=== PATIENT | female | born 1960 | race Caucasian/White ===

== ENCOUNTER 2019-01-10 20:41 | Emergency (ER) | payer OTHER ==
[~2019-01-10] VITALS: Ht 152.4 cm; Wt 61.2 kg
[2019-01-10 20:46] VITALS: BP 142/82
--- NOTE | 2019-01-10 20:54 | NUR ---
PT WHEELCHAIRED BY THE LOBBY, SON AT SIDE.
--- NOTE | 2019-01-10 21:05 | NUR ---
ASSUMED CARE OF PT AT THIS TIME. C/O RIGHT BIG TOE PAIN S/P MECHANICAL TRIP/FALL. AAOX4 WITH EVEN AND STEADY GAIT; PATIENT STATES PAIN OF 7/10; VSS; PATIENT POSITIONED FOR COMFORT; HOB ELEVATED; BEDRAILS UP X2; BED DOWN. ER MD MADE AWARE OF PT STATUS. WILL CONTINUE TO MONITOR.
--- NOTE | 2019-01-10 21:05 | NUR ---
PATIENT WHEELCHAIRED TO ER BED 4.
[2019-01-10] MEDS ORDERED: ACETAMINOPHEN 325 MG TAB PO ONE (21:20)
[2019-01-10 22:15] VITALS: BP 142/82
--- NOTE | 2019-01-10 22:15 | NUR ---
PLACED ORTHO SHOE AND MARTA TAPE ON PATIENT'S RIGHT FOOT
== END 2019-01-10 22:15 | disposition home or self-care (01) ==
LOC: MED 20:41
DX: S92.411A Displaced fracture of proximal phalanx of right great toe, initial encounter for closed fracture (principal); F41.9 Anxiety disorder, unspecified; I10 Essential (primary) hypertension; Z88.8 Allergy status to other drugs, medicaments and biological substances; W06.XXXA Fall from bed, initial encounter; Y93.89 Activity, other specified; Y92.89 Other specified places as the place of occurrence of the external cause; Y99.8 Other external cause status
CPT/HCPCS: 29515; 73660; 99283

== ENCOUNTER 2019-01-26 18:40 | Emergency (ER) | payer OTHER ==
[~2019-01-26] VITALS: Ht 152.4 cm; Wt 60.3 kg
[2019-01-26 18:52] VITALS: BP 130/77
--- NOTE | 2019-01-26 19:28 | NUR ---
58 Y/O FEMALE PRESENTS TO ED WITH C/O EDEMA TO RIGHT ELBOW X6 HRS. 8/10 SEVER PAIN RADIATING TO SHOULDER AND HAND. RIGHT ELBOW RED, EDEMA, SMALL INSECT-LIKE BITE. DECREASED HAND STRENGTH TO RIGHT HAND D/T PAIN. BILAT PULSES EQUAL/STRONG. NO DRAINAGE. ER MD AWARE. CONTINUE TO MONITOR.
--- NOTE | 2019-01-26 19:28 | NUR ---
Pt placed in bed 9.
--- NOTE | 2019-01-26 20:30 | NUR ---
PT IN BED RESTING WITH EYES OPEN. VSS. CONTINUE TO MONITOR.
--- NOTE | 2019-01-26 21:30 | NUR ---
PT IN BED RESTING WITH EYES OPEN. VSS. CONTINUE TO MONITOR.
--- NOTE | 2019-01-26 22:01 | NUR ---
PT AMBULATED TO RESTROOM. VSS. CONTINUE TO MONITOR.
[2019-01-26 22:04] LABS: BASOPHILS % (AUTO) 0.5 % (0.0-2.0); EOSINOPHILS # (AUTO) 0.4 K/uL (0-0.4); EOSINOPHILS % (AUTO) 4.8 % (0.0-4.0); HEMATOCRIT 39.1 % (36-48); HEMOGLOBIN 13.3 g/dL (12.0-16.0); LYMPHOCYTES # (AUTO) 1.8 K/uL (2.5-16.5); LYMPHOCYTES % (AUTO) 20.6 % (20.5-51.1); MEAN CORPUSCULAR HEMOGLOBIN 29 pg (27-31); MEAN CORPUSCULAR HGB CONC 34 g/dL (33-37); MEAN CORPUSCULAR VOLUME 84.7 fL (80-94); MONOCYTES # (AUTO) 0.8 K/uL (0.8-1.0); MONOCYTES % (AUTO) 8.7 % (1.7-9.3); NEUTROPHILS # (AUTO) 5.6 K/uL (1.8-7.7); NEUTROPHILS % (AUTO) 65.4 % (42.2-75.2); PLATELET COUNT (AUTO) 219 K/uL (140-450); RED BLOOD CELL COUNT(AUTO) 4.61 MIL/uL (4.20-5.40); RED CELL DISTRIBUTION WIDTH 12.8 % (11.6-13.7); WHITE BLOOD COUNT (AUTO) 8.6 K/uL (4.8-10.8)
[2019-01-26 22:17] LABS: ANION GAP 15.3 (8-16); CARBON DIOXIDE 26.6 mmol/L (21-32); CREATININE 0.9 mg/dL (0.6-1.3); POTASSIUM 3.9 mmol/L (3.5-5.1)
[2019-01-26 22:23] LABS: TOTAL BILIRUBIN 0.4 mg/dL (0.0-1.0)
--- NOTE | 2019-01-27 00:20 | NUR ---
DR. QUESADA SPEAKING WITH PATIENT.
[2019-01-27 00:35] VITALS: BP 118/82
--- NOTE | 2019-01-27 00:35 | NUR ---
Patient discharged with v/s stable. Written and verbal after care instructions given and explained. Patient verbalized understanding. Ambulatory with steady gait. All questions addressed prior to discharge. Advised to follow up with PMD.
== END 2019-01-27 00:35 | disposition home or self-care (01) ==
LOC: MED 18:40
DX: M71.521 Other bursitis, not elsewhere classified, right elbow (principal); I10 Essential (primary) hypertension; Z88.8 Allergy status to other drugs, medicaments and biological substances
CPT/HCPCS: 36415; 73080; 76881; 80053; 85025; 85651; 86140; 99284; Q0092

== ENCOUNTER 2019-01-29 13:24 | Emergency (ER) | payer OTHER ==
[~2019-01-29] VITALS: Ht 152.4 cm; Wt 63.5 kg
[2019-01-29 13:29] VITALS: BP 107/63
--- NOTE | 2019-01-29 13:35 | NUR ---
PT PLACED IN BED 8.
--- NOTE | 2019-01-29 13:48 | NUR ---
58/F BIB SELF C/O R ELBOW PAIN 12/25 X 3 DAYS. seen in our er 01/26/2019 right elbow bursitis instructed to return today for follow up. hx--htn, hypoglycemia, anxiety. PATIENT POSITIONED FOR COMFORT; HOB ELEVATED; BEDRAILS UP X1; BED DOWN. ER MD MADE AWARE OF PT STATUS.
[2019-01-29] MEDS ORDERED: KETOROLAC 60 MG/2 ML VIAL IM ONE (13:50)
[2019-01-29 14:23] VITALS: BP 113/67
--- NOTE | 2019-01-29 14:23 | NUR ---
Patient discharged with v/s stable. Written and verbal after care instructions given and explained. Patient alert, oriented and verbalized understanding of instructions. Ambulatory with steady gait. All questions addressed prior to discharge. ID band removed. Patient advised to follow up with PMD. Rx of TRAMADOL,PREDNISONE,KEFLEX given. Patient educated on indication of medication including possible reaction and side effects. Opportunity to ask questions provided and answered.
== END 2019-01-29 14:23 | disposition home or self-care (01) ==
LOC: MED 13:24
DX: M70.21 Olecranon bursitis, right elbow (principal); L03.113 Cellulitis of right upper limb; I10 Essential (primary) hypertension; F17.200 Nicotine dependence, unspecified, uncomplicated; Z88.5 Allergy status to narcotic agent; Z98.890 Other specified postprocedural states; Y93.89 Activity, other specified
CPT/HCPCS: 96372; 99283; J1885

== ENCOUNTER 2019-04-01 12:58 | Emergency (ER) | payer OTHER ==
[~2019-04-01] VITALS: Ht 152.4 cm; Wt 59.0 kg
--- NOTE | 2019-04-01 13:00 | NUR ---
KAYCE BARTON ALS TO ER BED 06
[2019-04-01 13:02] VITALS: BP 130/89
[2019-04-01] MEDS ORDERED: NACL 0.9% 1,000 ML IV ONE (13:10)
--- NOTE | 2019-04-01 13:30 | NUR ---
PT BIB AMBULANCE WITH C/O NAUSEA AND VOMITING AFTER TAKING PRAMIPEXOLE. PTS FRIEND SAID IT WOULD HELP WITH HER LEG CRAMP. PT IN BED RECEIVING IV FLUIDS AT THIS TIME. VSS. PT STATES SHE IS STARTING TO FEEL BETTER. MEDHX: HTN
--- NOTE | 2019-04-01 13:34 | NUR ---
PT REFUSED BLOOD WORK DESPITE EDUCATION. PT AGREED TO IV FLUIDS ORDERED. DR SPIVEY NOTIFIED.
--- NOTE | 2019-04-01 13:36 | NUR ---
PT UNABLE TO COLLECT URINE AT THIS TIME DESPITE EDUCATION. DR SPIVEY MADE AWARE.
--- NOTE | 2019-04-01 14:14 | NUR ---
Patient discharged with v/s stable. Written and verbal after care instructions given and explained. Patient verbalized understanding. Ambulatory with to home via her daughter. All questions addressed prior to discharge. Advised to follow up with PMD.
[2019-04-01 14:16] VITALS: BP 130/89
== END 2019-04-01 14:14 | disposition home or self-care (01) ==
LOC: MED 12:58
DX: R11.2 Nausea with vomiting, unspecified (principal); E11.9 Type 2 diabetes mellitus without complications; I10 Essential (primary) hypertension; F17.210 Nicotine dependence, cigarettes, uncomplicated; Z71.6 Tobacco abuse counseling; Z98.890 Other specified postprocedural states; Z96.659 Presence of unspecified artificial knee joint; Z88.5 Allergy status to narcotic agent
CPT/HCPCS: 96360; 99283; J7030